=== PATIENT | male | born 1975 | race Caucasian/White ===

== ENCOUNTER 2018-10-13 21:58 | Emergency (ER) | payer OTHER ==
[~2018-10-13] VITALS: Ht 175.2 cm
[2018-10-13] MEDS ORDERED: SODIUM BICARBO650 MG PO (22:18)
[2018-10-13] MEDS ORDERED: ASPIRIN CHEWABL81 MG PO (22:18)
[2018-10-13] MEDS ORDERED: DEPAKOTE DR500 MG PO (22:19)
[2018-10-13] MEDS ORDERED: GEODON80 MG PO (22:19)
[2018-10-13] MEDS ORDERED: VISTARIL25 MG PO (22:19)
[2018-10-13] MEDS ORDERED: ZYPREXA20 M1 PO (22:20)
[2018-10-13] MEDS ORDERED: ROBITUSSIN DM 101 OZ PO (22:20)
[2018-10-13] MEDS ORDERED: PROVENTIL HFA6.7 GM INH (22:21)
[2018-10-13] MEDS ORDERED: MUCINEX DM 30/61 TAB PO (22:22)
[2018-10-13 22:30] LABS: HEMATOCRIT 40.9 % (42.0-52.0); HEMOGLOBIN 14.4 g/dl (14.0-18.0); MEAN CELL VOLUME 93.2 fl (80.0-94.0); MEAN CORPUSCULAR HGB 32.8 pg (27.0-31.0); MEAN CORPUSCULAR HGB CONC 35.2 g/dl (33.0-37.0); MEAN PLATELET VOLUME 9.1 fl (9.6-12.3); PLATELET COUNT AUTOMATED 368 10*3/uL (130-400); RED BLOOD COUNT 4.39 10*6/uL (4.50-5.90); RED CELL DISTRI WIDTH 13.2 % (0-14.5)
[2018-10-13 22:45] LABS: ALKALINE PHOSPHATASE 69 U/L (45-117); BUN 20 mg/dl (7-24); CHLORIDE 105 mmol/L (98-107); CREATININE 0.88 mg/dL (0.70-1.30); POTASSIUM 4.2 mmol/L (3.5-5.1); SGOT/AST 19 IU/L (3-35); SGPT/ALT 29 U/L (12-78); SODIUM 136 mmol/L (136-145); TOTAL PROTEIN 7.4 gm/dL (6.4-8.2)
[2018-10-13 22:48] LABS: ACETAMINOPHEN (TYLENOL) < 5.0 ug/ml (10-30); ETHYL ALCOHOL < 3.0 mg/dl (<3)
[2018-10-13 22:51] LABS: ATYPICAL LYMPHS 1 % (0-0); BASOPHILS 1 % (0-1); TOTAL CELLS COUNTED 100 #CELLS
[2018-10-13 22:52] LABS: PLATELET SUFFICIENCY NORMAL (NORMAL)
[2018-10-13 22:57] LABS: BILIRUBIN NEGATIVE (NEGATIVE); BLOOD NEGATIVE (NEGATIVE); CLARITY SL CLOUDY (CLEAR); COLOR YELLOW (YELLOW); GLUCOSE NEGATIVE (NEGATIVE); KETONE NEGATIVE (NEGATIVE); LEUKO ESTERASE NEGATIVE (NEGATIVE); NITRITE NEGATIVE (NEGATIVE); UROBILINOGEN 0.2 E.U./dl (0.2-1.0)
[2018-10-13 23:05] LABS: BACTERIA 3+
[2018-10-13 23:07] LABS: URINE AMPHETAMINES < 1000 (1000ng/ml); URINE BARBITURATES < 200 (200ng/ml); URINE BENZODIAZEPINES < 200 (200ng/ml); URINE CANNABINOIDS (THC) < 50 (50ng/ml); URINE COCAINE < 300 (300ng/ml); URINE METHADONE < 300 (300ng/ml); URINE OPIATES < 300 (300ng/ml)
[2018-10-13 23:13] LABS: URINE PHENCYCLIDINE < 25 (25ng/ml)
== END 2018-10-14 01:42 | disposition home or self-care (01) ==
LOC: ED 21:58
PROVIDERS: Student in an Organized Health Care Education/Training Program
DX: Z00.8 Encounter for other general examination (principal); Z79.82 Long term (current) use of aspirin